=== PATIENT | female | born 1960 | race Two or more races ===

== ENCOUNTER 2023-04-04 16:56 | Emergency (ER) | payer OTHER ==
[~2023-04-04] VITALS: Ht 157.5 cm; Wt 97.5 kg
[2023-04-04] MEDS ORDERED: predniSONE 50 MG TABLET PO ONE (18:00)
[2023-04-04] MEDS ORDERED: diphenhydrAMINE HCL 25 MG CAPSULE PO ONE (18:00)
[2023-04-04] MEDS ORDERED: FAMOTIDINE (20 MG) 20 MG TABLET PO ONE (18:00)
[2023-04-04] MEDS ORDERED: diphenhydrAMINE HCL 25 MG CAPSULE ONE (18:11)
[2023-04-04] MEDS ORDERED: FAMOTIDINE (20 MG) 20 MG TABLET ONE (18:11)
[2023-04-04] MEDS ORDERED: predniSONE 20 MG TABLET ONE (18:11)
[2023-04-04] MEDS ORDERED: PRED50TA PO (18:20)
[2023-04-04 18:46] VITALS: BP 142/75; TEMP 98.6; O2SAT 99
== END 2023-04-04 18:46 | disposition home or self-care (01) ==
LOC: ER 16:56
DX: L50.9 Urticaria, unspecified (principal); L29.9 Pruritus, unspecified; T78.1XXA Other adverse food reactions, not elsewhere classified, initial encounter; I10 Essential (primary) hypertension; X58.XXXA Exposure to other specified factors, initial encounter
CPT/HCPCS: 99284; Q0163; J7512